=== PATIENT | female | born 1995 | race Caucasian/White ===

== ENCOUNTER → 2022-12-09 10:34 | Outpatient (CLI) | payer OTHER, SELFPAY ==
--- NOTE | 2022-12-09 | DI.MRI.S_ITS ---
PROCEDURE: MR LUMBAR SPINE WO CON INDICATIONS: Radiculopathy, lumbar region TECHNIQUE: Noncontrast sagittal T1 spin echo and T2 fast echo, sagittal STIR, and T2 fast spin echo through the lumbar spine. In cases with scoliosis, additional coronal T2 fast spin echo may be performed. COMPARISON: [facility], CR, XR LUMBAR SPINE 2 OR 3 VIEWS, 08/10/2022, 12:15. FINDINGS: Image quality: Excellent. Alignment and Curvature: There is normal bony alignment. Bone Marrow: Marrow is of normal overall signal. No acute vertebral body compression fractures. Spinal Cord: Conus medullaris terminates at the L1 level. Visualized cord demonstrates normal signal and size. Paraspinous Soft Tissues: No paravertebral masses. T12-L1: Normal appearance. L1-L2: Normal appearance. L2-L3: Normal appearance. L3-L4: The disc height and disk signal are well-preserved. Mild generalized disc bulge is seen. No significant neural foraminal or central canal narrowing can be seen. L4-L5: The disc height is well-preserved. Loss of disc signal is seen at this level. Mild to moderate disc bulge is seen, with a mild central disc protrusion. Mild facet joint hypertrophy is seen. Fluid is seen within the facet joints themselves. Mild bilateral neural foraminal narrowing is seen. Minimal central canal narrowing is seen. L5-S1: The disc height is well-preserved. Loss of disc signal is seen at this level. Mild generalized disc bulge is seen. There is a superimposed central disc protrusion. Mild facet joint hypertrophy is seen. There is mild left-sided and minimal right-sided neural foraminal narrowing. Minimal central canal narrowing is seen. IMPRESSION: Focal lower lumbar spine degenerative changes are seen. Dictated by: Christian Perry M.D. on 12/09/2022 at 11:45 Approved by: Christian Perry M.D. on 12/09/2022 at 11:56
== END ==
PROVIDERS: Referring Provider Physical Medicine & Rehabilitation; Visit Provider Physical Medicine & Rehabilitation
DX: M47.26 Other spondylosis with radiculopathy, lumbar region
CPT/HCPCS: 72148